=== PATIENT | male | born 1950 | race Caucasian/White ===

== ENCOUNTER 2016-03-24 12:22 | Emergency (ER) | payer MEDICARE, OTHER ==
[2016-03-24 12:28] VITALS: TEMP 97.7; BMI 34.4
[2016-03-24] MEDS ORDERED: SODIUM CHLORIDE 500 ML IV STA (13:36)
[2016-03-24] MEDS ORDERED: MECLIZINE HCL 25 MG TABLET (FP) PO ONE (13:36)
[2016-03-24] MEDS ORDERED: MECLIZINE HCL 25 MG TABLET (FP) ONE (13:39)
--- NOTE | 2016-03-24 14:04 | PDOC ---
History of Present Illness <Andersen,Abigaillou - Last Filed: 03/24/16 15:19> - General History Source: Patient Exam Limitations: No Limitations - History of Present Illness Initial Comments: 03/24/16 13:36 65y M hx of htn presents with complaint of dizziness. The patient states that the past few days when he wakes up he has been having mild headache and has room spinning dizziness. The pt states the sypmtoms typically resolve after the morning and he is asypmtomatic throughout the day. Pt denies any vision changes , numbness tingling, weakness, neck pain, back pain, chest pain, shortness of breath, abdominal pain, diarrhea, melena, bpr. pt states he went to his PMD and was given a pink pill to take which did not help very much, but wasnt sure what the name of the medication was. pt states he last felt dizzy this morning when he woke up, h eis currently significantly improved, denies vertigo now, but states he still didnt feel like himself. denies current headache, focal neuro complaints, palpitations, cp. <Serafin Brewer - Last Filed: 03/24/16 15:50> - General Chief Complaint: Lightheaded Stated Complaint: DIZZINESS, HIGH BP Time Seen by Provider: 03/24/16 12:45 Past History <GaneshAbigaillou - Last Filed: 03/24/16 15:19> - Past Medical History Diabetes: Yes HTN: Yes - Surgical History Abdominal Surgery: Yes (HERNIA) - Psycho/Social/Smoking Cessation Hx Suicidal Ideation: No Smoking History: Never smoked Hx Alcohol Use: Yes (SOCIAL) Drug/Substance Use Hx: No Substance Use Type: None <Serafin Brewer - Last Filed: 03/24/16 15:50> - Past Medical History Allergies/Adverse Reactions: Allergies Allergy/AdvReac Type Severity Reaction Status Date / Time No Known Allergies Allergy Verified 03/24/16 12:28 Home Medications: Ambulatory Orders Meclizine HCl [Antivert -] 25 mg PO TID PRN #30 tablet 03/24/16 Metformin HCl [Glucophage -] 850 mg PO BID 03/24/16 Review of Systems - Review of Systems Able to Perform ROS?: Yes Comments:: 03/24/16 15:31 Constitutional - no reported Fever, Chills, weakness, HEENT: no reported vision changes, sore throat Respiratory: no reported cough, sob, hemoptysis Cardiac: no reported chest pain, palpitations, light headedness, leg swelling Abd/GI: no reported abd pain, vomiting, blood per rectum, melena, diarrhea : no reported dysuria, frequency, discharge Musculskelatal - no reported back pain, joint swelling skin - no reported bruising, erythema, rash neurological: +vertigo, headache no reported headache, numbness, focal weakness , tingling, ataxia, weakness hematologic: no reported anemia, easy bruising, easy bleeding <DaniellaSerafin - Last Filed: 03/24/16 15:50> *Physical Exam - Vital Signs Last Vital Signs Temp Pulse Resp BP Pulse Ox 97.7 F 72 18 132/82 98 03/24/16 12:25 03/24/16 14:54 03/24/16 14:54 03/24/16 14:54 03/24/16 14:54 <Andersen,Giomilsy - Last Filed: 03/24/16 15:19> - Vital Signs Last Vital Signs Temp Pulse Resp BP Pulse Ox 97.7 F 82 20 151/84 97 03/24/16 12:25 03/24/16 12:25 03/24/16 12:25 03/24/16 12:25 03/24/16 12:25 - Physical Exam Comments: 03/24/16 15:32 GENERAL: The patient is awake, alert, and fully oriented, Nontoxic - in no acute distress. HEAD: Normocephalic, atraumatic. EYES: extraocular movements intact, sclera anicteric, conjunctiva clear, no nystagmus ENT: Normal voice, Moist mucous membranes. NECK: Normal range of motion, supple LUNGS: Breath sounds equal, clear to auscultation bilaterally. No wheezes, no rhonchi, no rales. HEART: Regular rate and rhythm, normal S1 and S2 without murmur, rub or gallop. ABDOMEN: Soft, nontender, normoactive bowel sounds. No guarding, no rebound. . No CVA tenderness EXTREMITIES: Normal range of motion, no edema. No clubbing or cyanosis. No cords, erythema, or tenderness. NEUROLOGICAL: No facial assymetry, Normal speech, normal finger to nose, normal rapid alternating movements, normal gait, strength 5/5 in upper/lower extermities, sensation intact grossly in upper/lower extermities. normal gait. PSYCH: Normal mood, normal affect. SKIN: Warm, Dry, normal turgor, <Serafin Brewer - Last Filed: 03/24/16 15:50> Heart Score/ECG Review - ECG Impressions Comment:: 03/24/16 15:35 Twelve-lead EKG was performed and reviewed by me. There is normal sinus rhythm with a normal rate. Rate of 73 Left axis devaition RBBB <Alphonso Breweran - Last Filed: 03/24/16 15:50> ED Treatment Course - LABORATORY CBC & Chemistry Diagram: 03/24/16 13:50 03/24/16 13:50 - ADDITIONAL ORDERS Additional order review: Laboratory Results 03/24/16 03/24/16 14:15 13:50 Sodium 139 Potassium 4.4 Chloride 100 Carbon Dioxide 30 Anion Gap 9 BUN 11 Creatinine 0.8 Creat Clearance w eGFR > 60 Random Glucose 125 H Calcium 9.2 Total Bilirubin 0.4 AST 55 H ALT 38 Alkaline Phosphatase 74 Total Protein 7.6 Albumin 3.6 Urine Color Straw Urine Appearance Clear Urine pH 7.0 Ur Specific [place] 1.009 Urine Protein Negative Urine Glucose (UA) Negative Urine Ketones Negative Urine Blood Negative Urine Nitrite Negative Urine Bilirubin Negative Urine Urobilinogen Negative Ur Leukocyte Esterase Negative 03/24/16 13:50 RBC 4.53 MCV 90.2 MCHC 35.0 RDW 13.1 MPV 8.2 Neutrophils % 50.8 Lymphocytes % 38.7 Monocytes % 8.0 Eosinophils % 2.3 Basophils % 0.2 - RADIOLOGY Radiograph Interpretation: 03/24/16 15:19 EXAM: Head CT INTERPRETED BY: Dr. Du REVIEWED BY: Dr. Brewer IMPRESSION: No evidence of acute intracranial hemorrhage, edema, midline shift, mass effect, or skull fracture. No CT evidence of acute territorial infarction. No evidence of otomastoiditis, acute sinusitis. - Medications Given in the ED: ED Medications Discontinued Medications Generic Name Dose Route Start Last Admin Trade Name Freq PRN Reason Stop Dose Admin Sodium Chloride 500 mls @ 500 mls/hr 03/24/16 13:36 03/24/16 13:49 Normal Saline - IV 03/24/16 14:35 500 mls/hr ASDIR STA Administration Meclizine HCl 25 mg 03/24/16 13:36 03/24/16 13:50 Antivert - PO 03/24/16 13:37 25 mg ONCE ONE Administration <Huong Andersen - Last Filed: 03/24/16 15:19> - LABORATORY CBC & Chemistry Diagram: 03/24/16 13:50 03/24/16 13:50 <Serafin Brewer - Last Filed: 03/24/16 15:50> Medical Decision Making - Medical Decision Making 03/24/16 15:36 65y M hx of htn, presents with vertigo, exam unremarkable no lateralizing findings, no cerebellar findings. bp noted for mild hypertension ct head was obtained to r/o acute pathology/mass (due t headache in AM only), pt given meclizine with improvement will dc the ptaient with PMD fu return precautions were discussed I discussed the physical exam findings, ancillary test results and final diagnoses with the patient. I answered all of the patient's questions. The patient was satisfied with the care received and felt comfortable with the discharge plan and treatment plan. The patient will call their primary care physician within 24 hours to arrange follow-up and will return to the Emergency Department with any new, persistent or worsening symptoms. <Serafin Brewer - Last Filed: 03/24/16 15:50> *DC/Admit/Observation/Transfer <Huong Andersen - Last Filed: 03/24/16 15:19> - Discharge Dispostion Admit: No <Serafin Brewer - Last Filed: 03/24/16 15:50> Diagnosis at time of Disposition: Benign positional vertigo Qualifiers: Laterality: unspecified laterality Qualified Code(s): H81.10 - Benign paroxysmal vertigo, unspecified ear - Discharge Dispostion Disposition: HOME Condition at time of disposition: Improved - Prescriptions Prescriptions: Meclizine HCl [Antivert -] 25 mg PO TID PRN #30 tablet PRN Reason: Vertigo - Referrals Referrals: Margarita Porter MD [Primary Care Provider] - Toy Carr MD [Staff Physician] - - Patient Instructions Printed Discharge Instructions: DI for Vertigo Additional Instructions: Vuelva al departamento de emergencia inmediatamente con CUALQUIER nuevo, persistente o empeorando los sntomas. Usted DEBE llamar y seguir con dong doctor maana para la evaluacin adicional de cleo sntomas. Los resultados fueron discutidos con usted. Por favor, asegrese de que dong mdico revise los resultados de dong evaluacin de emergencia. Si usted tuvo alguna radiografa paul dong visita, fue alberto preliminarmente por m mismo, un Radilogo lo revisar y si hay algn hallazgo adicional lo llamaremos. Return to the emergency department immediately with ANY new, persistent or worsening symptoms. You MUST call and follow up with your doctor tomorrow for further evaluation of your symptoms. Results were discussed with you. Please make sure your doctor reviews the results of your emergency evaluation. If you had any xrays during your visit, it was read preliminarily by myself, a Radiologist will review it and if there are any additional findings we will call you. Print Language: [place]
[2016-03-24 14:12] LABS: BASOPHIL 0.2 % (0-2.0); EOSINOPHIL 2.3 % (0-4.5); MCH 31.6 pg (25.7-33.7); MEAN CELL VOLUME 90.2 fl (80-96); MEAN PLT VOLUME 8.2 fl (7.5-11.1); NEUTROPHILS 50.8 % (42.8-82.8); PLATELET COUNT 188 K/MM3 (134-434); RDW 13.1 % (11.9-15.9); WHITE BLOOD COUNT 7.8 K/mm3 (4.0-10.0)
[2016-03-24 14:38] LABS: ALBUMIN 3.6 g/dl (3.4-5.0); ALK PHOS 74 U/L (45-117); ANION GAP 9 (8-16); BILIRUBIN,TOTAL 0.4 mg/dL (0.2-1.0); CALCIUM 9.2 mg/dL (8.5-10.1); CO2 30 mmol/L (21-32); CREATININE 0.8 mg/dL (0.7-1.3); GLUCOSE,RANDOM 125 mg/dL (74-106); SGOT/AST 55 U/L (15-37); SGPT/ALT 38 U/L (12-78); TOT PROT 7.6 g/dl (6.4-8.2)
[2016-03-24 14:45] LABS: URINE APPEARANCE CLEAR; URINE BILIRUBIN NEGATIVE (NEGATIVE); URINE BLOOD NEGATIVE (NEGATIVE); URINE COLOR STRAW; URINE GLUCOSE (UA) NEGATIVE (NEGATIVE); URINE KETONE NEGATIVE (NEGATIVE); URINE LEUK ESTERASE NEGATIVE (NEGATIVE); URINE NITRITE NEGATIVE (NEGATIVE); URINE PROTEIN NEGATIVE (NEGATIVE); URINE UROBILINOGEN NEGATIVE E.U./dl (0.2-1.0)
[2016-03-24 14:54] VITALS: BP 132/82; PULSE 72
--- NOTE | 2016-03-24 22:53 | EKG ---
Test Reason : Blood Pressure : / mmHG Vent. Rate : 073 BPM Atrial Rate : 073 BPM P-R Int : 160 ms QRS Dur : 154 ms QT Int : 436 ms P-R-T Axes : 040 -43 018 degrees QTc Int : 480 ms NORMAL SINUS RHYTHM LEFT AXIS DEVIATION RIGHT BUNDLE BRANCH BLOCK ABNORMAL ECG NO PREVIOUS ECGS AVAILABLE Confirmed by SPENCER PALACIO, MAGDIEL ([id number]) on 03/24/2016 10:53:18 PM Referred By: Confirmed By:MAGDIEL PALMER MD
== END 2016-03-24 16:08 | disposition home or self-care (01) ==
LOC: JER 12:22
PROC: 3E0337Z Introduction of Electrolytic and Water Balance Substance into Peripheral Vein, Percutaneous Approach (ICD-10-PCS; principal; 2016-03-24)
DX: H81.10 Benign paroxysmal vertigo, unspecified ear (principal); I10 Essential (primary) hypertension; E11.9 Type 2 diabetes mellitus without complications
CPT/HCPCS: 36415; 70450-TC; 80053; 81003; 85025; 93005; 93010; 96360; 99284-25